=== PATIENT | female | born 1990 | race Two or more races ===

== ENCOUNTER 2020-06-15 12:43 | Inpatient (IN) | payer SELFPAY ==
[~2020-06-15] VITALS: Ht 157.5 cm; Wt 54.4 kg
--- NOTE | ~2020-06-15 | OP ---
PATIENT NAME: INGRIS KIMBALL MEDICAL RECORD: [id number] :89 LOCATION:D.M2 D.3 ADMISSION DATE:06/16/20 SURGEON: ANITA WALLER MD DATE OF OPERATION: 06/17/2020 PREOPERATIVE DIAGNOSIS: Colitis. POSTOPERATIVE DIAGNOSIS: No evidence of colitis or proctitis. No evidence of ileitis. Normal lower endoscopy. PROCEDURE PERFORMED: 1. Total colonoscopy to cecum. 2. Ileoscopy with cold endoscopic biopsy. 3. Random colon and rectal biopsies. 4. Stool cultures and stool studies. SURGEON: Anita Waller M.D. STEEL HEATER: None. BLOOD LOSS: Minimal. ANESTHESIA: IV sedation. COMPLICATIONS: None. The risks, possible complications, alternatives of the procedure were explained to the patient. She elects to proceed. ENDOSCOPIC COURSE: The patient was conveyed to the endoscopy suite electively on 06/17/2020. IV sedation was induced by the anesthesia staff. The patient was placed in the Sarmiento position. A digital rectal examination was performed. A colonoscope was inserted through the anus. It was easily advanced to the cecum. I intubated the ileum and traveled about a foot up the ileum. A cold endoscopic ileal biopsy was obtained. The ileum appeared normal. I then withdrew back into the colon. I slowly withdrew the endoscope. I irrigated and aspirated extensively. A combination of normal imaging and narrow band imaging were utilized. Stool was collected for stool cultures and stool studies. Random colon and rectal biopsies were obtained. The vascular pattern in the colon and rectum were normal. I noted no evidence of colitis or proctitis. A retroflexed view was obtained in the rectum. I then unretroflexed the scope and removed under direct vision. From my standpoint, the patient can be dismissed home on no antibiotics. I would like to see her in my office in 2 to 3 weeks to discuss the results of the stool studies. TRANSINT:[id number] Voice Confirmation ID: [id number] DOCUMENT ID: [id number] OPERATIVE REPORT [id number] AMINIDALMIS ISBELLINGRIS ROBERT MD CC: PHOEBE JANG [id number] DICTATION DATE: 06/17/20 1509 GUIDE DELEGATE: 06/17/202124 DIS IN 06/17/20 [facility] [address] [place] [address]
[~2020-06-15 12:43] MED LIST: ULTRAM50 MG PO
[2020-06-15 13:24] LABS: BASOPHILS 0.4 % (0-2); EOSINOPHILS 2.2 % (0-7); HEMATOCRIT 38.3 % (36.0-48.0); HEMOGLOBIN 12.9 g/dL (12-16); IMMATURE GRANULOCYTES 0.2 % (0-5); LYMPHOCYTE ABS# 1.91 10x3/uL (1.18-3.74); LYMPHOCYTES 34.3 % (15-50); MCH 30.9 pg (26.0-34.0); MCHC 33.7 g/dL (31.0-37.0); MCV 91.6 fL (80.0-100.0); NEUTROPHIL ABS# 3.23 10x3/uL (1.56-6.13); NEUTROPHILS 57.9 % (40-80); PLATELET COUNT 266 10x3/uL (130-400); RBC 4.18 10x6/uL (4.00-5.40); WBC 5.6 10x3/uL (4.8-10.8)
[2020-06-15 13:34] LABS: CALC OSMOLALITY 273 mosm/kg (275-300); CARBON DIOXIDE 28.8 mmol/L (21.0-32.0); CHLORIDE - SERUM 105 mmol/L (98-107); CREATININE - SERUM 0.7 mg/dL (0.6-1.3); GLUCOSE 88 mg/dL (74-106); POTASSIUM - SERUM 3.8 mmol/L (3.5-5.1); SODIUM 138 mmol/L (136-145); UREA NITROGEN 11 mg/dL (7-18); eGFR NON AFRICAN AMERICAN > 90 mL/min (90-120)
[2020-06-15 13:42] LABS: ALBUMIN 3.9 g/dL (3.4-5.0); ALKALINE PHOSPHATASE 76 U/L (30-120); ALT (SGPT) 27 U/L (10-68); AMYLASE - SERUM 65 U/L (25-115); BILIRUBIN - TOTAL 0.36 mg/dL (0.2-1.3); LIPASE 103 U/L (73-393); PROTEIN - SERUM 7.6 g/dL (6.4-8.2)
[2020-06-15 13:47] LABS: TROPONIN-I < 0.017 ng/mL (0.000-0.060)
[2020-06-15 14:15] LABS: BILIRUBIN NEGATIVE (NEGATIVE); KETONE NEGATIVE (NEGATIVE); NITRITE NEGATIVE (NEGATIVE); UROBILINOGEN NORMAL mg/dL (< 2)
--- NOTE | 2020-06-15 14:22 | NUR ---
DIGITAL CONTENT MANAGER PHONE USED TO COMMUNICATE WITH PT SHE IS SAMOAN SPEAKING
--- NOTE | 2020-06-15 14:55 | NUR ---
PT TO CT VIA WHEEL CHAIR
[2020-06-15 18:00] VITALS: BMI 22.0
--- NOTE | 2020-06-15 18:35 | NUR ---
RECEIVED PT TO ROOM 2112 VIA WHEELCHAIR, PT A/O X4, RESP EVEN AND NONLABORED ON RA. ORIENTED PT TO ROOM AND CALL LIGHT. DR. WALLER AT BEDSIDE TO ASSESS PT. WILL ASSESS PT AND START PLAN OF CARE.
[2020-06-15 22:06] VITALS: BP 115/80
[2020-06-16 04:00] VITALS: BP 122/81
[2020-06-16 06:43] LABS: BASOPHILS 0.2 % (0-2); EOSINOPHILS 1.7 % (0-7); HEMATOCRIT 39.1 % (36.0-48.0); IMMATURE GRANULOCYTES 0.2 % (0-5); LYMPHOCYTE ABS# 1.88 10x3/uL (1.18-3.74); LYMPHOCYTES 36.1 % (15-50); MCH 30.4 pg (26.0-34.0); MCHC 33.2 g/dL (31.0-37.0); MCV 91.6 fL (80.0-100.0); MEAN PLATELET VOLUME 10.2 fL (7.4-10.4); NEUTROPHIL ABS# 2.91 10x3/uL (1.56-6.13); NEUTROPHILS 55.8 % (40-80); PLATELET COUNT 263 10x3/uL (130-400); RBC 4.27 10x6/uL (4.00-5.40); RDW 11.9 % (11.5-14.5); WBC 5.2 10x3/uL (4.8-10.8)
[2020-06-16 06:52] LABS: ALBUMIN 3.6 g/dL (3.4-5.0); ALKALINE PHOSPHATASE 67 U/L (30-120); ALT (SGPT) 29 U/L (10-68); CALC OSMOLALITY 272 mosm/kg (275-300); CALCIUM 8.7 mg/dL (8.5-10.1); CARBON DIOXIDE 27.2 mmol/L (21.0-32.0); CHLORIDE - SERUM 105 mmol/L (98-107); CREATININE - SERUM 0.6 mg/dL (0.6-1.3); GLUCOSE 93 mg/dL (74-106); MAGNESIUM - SERUM 2.2 mg/dL (1.8-2.4); PHOSPHOROUS 4.3 mg/dL (2.5-4.9); POTASSIUM - SERUM 3.5 mmol/L (3.5-5.1); PROTEIN - SERUM 7.2 g/dL (6.4-8.2); SODIUM 137 mmol/L (136-145); UREA NITROGEN 10 mg/dL (7-18); eGFR NON AFRICAN AMERICAN > 90 mL/min (90-120)
--- NOTE | 2020-06-16 08:02 | NUR ---
PT LYING IN BED, RR EVEN NON LABORED. IV INFUSING WITHOUT DIFFICULTY. PT AWAKE AND ALERT. PT STATES "IM DOING FINE," BREAKFAST TRAY GIVEN PER DIETARY. AM MEDS GIVEN. NO FURTHER NEEDS VOICED. CLWR.
--- NOTE | 2020-06-16 08:40 | NUR ---
AMEND TO SHIFT ASSESSMENT. NO SIGNS OR SYMPTOMS OF ABUSE/NEGLECT NOTED.
[2020-06-16 08:44] VITALS: BP 99/55
--- NOTE | 2020-06-16 10:22 | NUR ---
PT SITTING UP IN BED TALKING ON CELL PHONE, RR EVEN NON LABORED. SCHEDULED MED GIVEN. NO FURTHER NEEDS VOICED. CLWR.
[2020-06-16 12:52] VITALS: Ht 157.5 cm; Wt 54.4 kg
--- NOTE | 2020-06-16 13:35 | NUR ---
PT SITTING UP IN BED , RR EVEN NON LABORED , WATCHING TV. NO NEEDS VOICED, CLWR.
[2020-06-16 13:36] VITALS: BP 112/70
--- NOTE | 2020-06-16 14:17 | NUR ---
PT BEING ASSISTED WITH EVICTION SPECIALIST TO SHOWER AT THIS TIME. PT DENIES ANY PAIN OR NEEDS. CLWR.
[2020-06-16 21:10] VITALS: BP 113/87
--- NOTE | 2020-06-16 22:41 | NUR ---
REPORT RECEIVED. PT A&O, UP IN BED WATCHING TV. NO S/S OF DISTRESS OBSERVED. RR EVEN & UNLABORED ON RA. BED LOCKED AND LOWERED, CL IN REACH. ASSESSMENT COMPLETED AT THIS TIME. WILL CONT POC.
[2020-06-17 04:38] VITALS: BP 101/66
[2020-06-17 05:53] LABS: MAGNESIUM - SERUM 2.2 mg/dL (1.8-2.4); PHOSPHOROUS 3.6 mg/dL (2.5-4.9)
--- NOTE | 2020-06-17 07:56 | NUR ---
PT LYING IN BED WITH HOB RAISED ON CELL PHONE. PRN PAIN MEDICATION D/T "POKING" PAIN IN ABD. RR EVEN NON LABORED ON ROOM AIR. NO FURTHER NEEDS VOICED. CLWR.
[2020-06-17 08:17] VITALS: BP 103/66
[2020-06-17 10:00] LABS: ALBUMIN 3.7 g/dL (3.4-5.0); ALKALINE PHOSPHATASE 68 U/L (30-120); ALT (SGPT) 30 U/L (10-68); BILIRUBIN - TOTAL 0.38 mg/dL (0.2-1.3); CALC OSMOLALITY 274 mosm/kg (275-300); CALCIUM 8.3 mg/dL (8.5-10.1); CARBON DIOXIDE 23.9 mmol/L (21.0-32.0); CHLORIDE - SERUM 107 mmol/L (98-107); CREATININE - SERUM 0.7 mg/dL (0.6-1.3); GLUCOSE 87 mg/dL (74-106); POTASSIUM - SERUM 3.4 mmol/L (3.5-5.1); PROTEIN - SERUM 7.4 g/dL (6.4-8.2); SODIUM 140 mmol/L (136-145); eGFR NON AFRICAN AMERICAN > 90 mL/min (90-120)
[2020-06-17 10:02] LABS: UREA NITROGEN 5 mg/dL (7-18)
[2020-06-17 10:14] LABS: BASOPHILS 0.4 % (0-2); EOSINOPHILS 2.3 % (0-7); HEMATOCRIT 39.6 % (36.0-48.0); HEMOGLOBIN 12.9 g/dL (12-16); IMMATURE GRANULOCYTES 0.2 % (0-5); LYMPHOCYTE ABS# 1.82 10x3/uL (1.18-3.74); LYMPHOCYTES 38.3 % (15-50); MCH 30.2 pg (26.0-34.0); MCHC 32.6 g/dL (31.0-37.0); MCV 92.7 fL (80.0-100.0); MEAN PLATELET VOLUME 10.3 fL (7.4-10.4); MONOCYTES 7.2 % (2-11); NEUTROPHIL ABS# 2.45 10x3/uL (1.56-6.13); NEUTROPHILS 51.6 % (40-80); PLATELET COUNT 276 10x3/uL (130-400); RBC 4.27 10x6/uL (4.00-5.40); RDW 12.1 % (11.5-14.5); WBC 4.8 10x3/uL (4.8-10.8)
[2020-06-17 12:42] VITALS: BP 106/62
--- NOTE | 2020-06-17 13:28 | NUR ---
PT TAKEN TO GI LAB AT THIS TIME.
[2020-06-17] MEDS ORDERED: MELATONIN 3 MG1 TAB PO (15:05)
[2020-06-17] MEDS ORDERED: FLORAJEN3 CAPS460 MG PO (15:05)
[2020-06-17] MEDS ORDERED: COLACE100 MG PO (15:05)
[2020-06-17] MEDS ORDERED: VISTARIL25 MG PO (15:05)
[2020-06-17] MEDS ORDERED: PROTONIX40 MG PO (15:05)
[2020-06-17] MEDS ORDERED: TESSALON PERLE100 MG PO (15:05)
[2020-06-17] MEDS ORDERED: NAPROXEN250 MG PO (15:06)
--- NOTE | 2020-06-17 15:21 | NUR ---
PT ARRIVED BACK FROM GI LAB AT THIS TIME. RR EVEN NON LABORED. VS OBTAINED AND STABLE. PT AWAKE AND ALERT, STATES "I NEED SLEEP" ENCOURAGED PT TO TAKE A NAP AND INSTRUCTED HER TO NOT EXIT THE BED UNATTENDED. PT STATES UNDERSTANDING. NO NEEDS VOICED. CLWR.
[2020-06-17 15:57] VITALS: BP 96/63
--- NOTE | 2020-06-17 15:58 | NUR ---
SPOKE WITH PT REGARDING HER D/C ORDER POST ANESTHESIA. PT STATES UNDERSTANDING AND HER FAMILY MEMBER WAS GOING TO COME GET HERE WHEN SHE IS ABLE TO LEAVE. PT AMBULATED TO RESTROOM WITH ASSISTANCE WITH STEADY GAIT. PT AWAKE AND ALERT, NO NEEDS VOICED. VS STABLE. CLWR.
--- NOTE | 2020-06-17 17:06 | NUR ---
D/C INSTRUCTIONS GIVEN AT THIS TIME. PT STATES UNDERSTANDING. WRITTEN INSTRUCTIONS GIVEN IN [place]. NO QUESTIONS VOICED. VS STABLE. PT GATHERING BELONGINGS. SPOUSE AT BEDSIDE.
--- NOTE | 2020-06-17 17:18 | NUR ---
IV TO RIGHT AC D/C, CATHETER INTACT, DRESSING APPLIED.
--- NOTE | 2020-06-17 17:35 | NUR ---
PT WHEELED TO PRIVATE VEHICLE WITH ALL BELONIGINGS AT THIS TIME. NO DISTRESS NOTED ON DEPARTURE.
== END 2020-06-17 17:35 | disposition home or self-care (01) | DRG 392 ==
LOC: D.ER 12:43 → OBSVTIME 16:20 → D.M2 16:20
PROVIDERS: Emergency Medicine; Family Medicine; Surgery; ADMIT Emergency Medicine; ATTEND Emergency Medicine
PROC: 0DBP8ZX Excision of Rectum, Via Natural or Artificial Opening Endoscopic, Diagnostic (ICD-10-PCS; 2020-06-17)
PROC: 0DBB8ZX Excision of Ileum, Via Natural or Artificial Opening Endoscopic, Diagnostic (ICD-10-PCS; principal; 2020-06-17 14:15)
DX: R10.9 Unspecified abdominal pain (principal); K92.2 Gastrointestinal hemorrhage, unspecified

== ENCOUNTER 2020-06-21 23:15 | Inpatient (IN) | payer SELFPAY ==
[~2020-06-21] VITALS: Ht 157.5 cm; Wt 54.5 kg
[~2020-06-21 23:15] MED LIST changes: +COLACE100 MG PO; +FLORAJEN3 CAPS460 MG PO; +MELATONIN 3 MG1 TAB PO; +NAPROXEN250 MG PO; +PROTONIX40 MG PO; +TESSALON PERLE100 MG PO; +VISTARIL25 MG PO
[2020-06-21 23:53] LABS: HEMATOCRIT 38.1 % (36.0-48.0); HEMOGLOBIN 13.2 g/dL (12-16); LYMPHOCYTES 38.8 % (15-50); MCH 30.9 pg (26.0-34.0); MCHC 34.6 g/dL (31.0-37.0); MCV 89.2 fL (80.0-100.0); MEAN PLATELET VOLUME 9.7 fL (7.4-10.4); NEUTROPHILS 55.5 % (40-80); PLATELET COUNT 270 10x3/uL (130-400); RBC 4.27 10x6/uL (4.00-5.40); WBC 5.3 10x3/uL (4.8-10.8)
[2020-06-21 23:56] LABS: CALC OSMOLALITY 278 mosm/kg (275-300); CHLORIDE - SERUM 103 mmol/L (98-107); CREATININE - SERUM 0.7 mg/dL (0.6-1.3); POTASSIUM - SERUM 3.8 mmol/L (3.5-5.1); SODIUM 139 mmol/L (136-145); UREA NITROGEN 9 mg/dL (7-18); eGFR NON AFRICAN AMERICAN > 90 mL/min (90-120)
[2020-06-21 23:58] LABS: GLUCOSE 140 mg/dL (74-106)
[2020-06-22] VITALS (9 sets, daily range): BP systolic 90–113; BP diastolic 56–90; Ht 157.5 cm; Wt 54.5 kg
[2020-06-22 00:04] LABS: ALKALINE PHOSPHATASE 76 U/L (30-120); ALT (SGPT) 47 U/L (10-68); AMYLASE - SERUM 63 U/L (25-115); BILIRUBIN - TOTAL 0.25 mg/dL (0.2-1.3); LIPASE 100 U/L (73-393); PROTEIN - SERUM 7.9 g/dL (6.4-8.2)
[2020-06-22 00:05] LABS: TROPONIN-I < 0.017 ng/mL (0.000-0.060)
[2020-06-22 00:28] LABS: HCG URINE NEGATIVE (NEGATIVE)
[2020-06-22 00:54] LABS: BILIRUBIN NEGATIVE (NEGATIVE); KETONE NEGATIVE (NEGATIVE); NITRITE NEGATIVE (NEGATIVE); UROBILINOGEN NORMAL mg/dL (< 2)
[2020-06-22 00:55] LABS: BACTERIA MODERATE HPF (NONE SEEN); WHITE CELLS - URINE 0-5 HPF (0-4)
--- NOTE | 2020-06-22 06:45 | NUR ---
PT RECEIVED FROM ED, AAOX4, VSS, AFEBRILE. ORIENTED TO ROOM/UNIT/TV, PT STATES UNDERSTANDING. IVF OF NS INFUSING AT 75 ML/HR TO RIGHT FA WITHOUT DIFFICULTY, SITE BENIGN TO INSPECTION. SR UP X2, BED IN LOW POSITION, BED BRAKES LOCKED.
--- NOTE | 2020-06-22 07:30 | NUR ---
PATIENT RESTING WITH EYES CLOSED IN SUPINE POSTION. RR UNLABORED AND REGULAR NO SS OF DISTRESS NOTED. BEEPING IV CORRECTED. BED IN LOW, SRUP X2, CALL LIGHT AND PHONE WITHIN REACH. PT NOT DISTURBED TO ALLOW FOR REST.
--- NOTE | 2020-06-22 07:47 | NUR ---
ADMISSION/SHIFT ASSESSMENT COMPLETED PER FLOWSHEET. VSS. C/O RLQ ABD 04/16, DENIES NEED FOR PAIN MEDS. POC DISCUSSED AND PT INSTRUCTED TO NOTIFY RN IF SHE NEEDS PAIN MEDS D/T ORDER BEING PRN, VERBALIZES UNDERSTANDING. QUESTIONS ANSWERED. DENIES NEEDS. BED IN LOW POSITION WITH SRUP X2. CALL LIGHT AND PHONE WITHIN REACH.
--- NOTE | 2020-06-22 09:24 | NUR ---
RESTING QUEITLY IN SEMI-FOWLERS POSITION ON RIGHT SIDE WITH EYES CLOSED, RESP REGULAR AND UNLABORED, NO S/S OF DISTRESS NOTED. BED IN LOW POSITION WITH SRUP X2. CALL LIGHT AND PHONE WITHIN REACH.
--- NOTE | 2020-06-22 12:30 | NUR ---
PT RESTING IN SUPINE POSITION, NO COMPLAINTS OR REQUESTS AND DENIES NEED FOR PAIN MEDS AT THIS TIME. ICE WATER PROVIDED, LUNCH TRAY REMOVED, BED IN LOW POSITION, CALL LIGHT AND PHONE WITHIN REACH.
--- NOTE | 2020-06-22 13:50 | NUR ---
PT RESTING IN ROOM, EYES CLOSED, SUPINE POSITION AND DUNG PAIN, 0 OUT OF 10 ON PAIN SCALE. BED IN LOW POSITION SRUP X2 CALL LIGHT AND PHONE WITHIN REACH.
--- NOTE | 2020-06-22 18:10 | NUR ---
TOOK PT VISITOR TO ROOM. PT SITTING IN BED ON CELL PHONE, DUNG PAIN AT THIS TIME, STATES 0/10 ON PAIN SCALE, CALL LIGHT AND PHONE WITHIN REACH, BED IN LOW POSITION, AND SRUP X2.
--- NOTE | 2020-06-22 19:30 | NUR ---
PT SITTING UP IN BED A,A,OX4. VSS. S1,S2 REGULAR RATE AND RHYTHM. RESPIRATIONS EVEN AND UNLABORED, BREATH SOUNDS CLEAR IN ALL LOBES. BOWEL SOUNDS NORMOACTIVE IN ALL 4 QUADRANTS. PT C/O SUPRAPUBIC PAIN AT 4/10, DENIES PAIN MEDICATION. PIV IN RIGHT FOREARM, NS INFUSING AT 75 MLS/HR. SEE FULL ASSESSMENT PER FLOWSHEET. CALL LIGHT WITHIN REACH.
--- NOTE | 2020-06-22 21:18 | NUR ---
PT PIV IN RIGHT FOREARM INFILTRATED. NEW IV STARTED IN RIGHT HAND SECOND ATTEMPT.
--- NOTE | 2020-06-22 22:40 | NUR ---
PT CALLS OUT ON LIGHT FOR SOMETHING TO EAT. SANDWICH TRAY, CRACKERS, JELLO AND ICE PROVIDED. PT DENIES OTHER NEEDS AT THIS TIME.
--- NOTE | 2020-06-23 00:43 | NUR ---
MEDICATION ADMINISTERED PER EMAR. PT DENIES NEEDS AT THIS TIME.
[2020-06-23 00:48] VITALS: BP 97/60
--- NOTE | 2020-06-23 03:00 | NUR ---
PT RESTING WITH EYES CLOSED, BREATHING NONLABORED.
--- NOTE | 2020-06-23 04:00 | NUR ---
NEW NS BAG HUNG INFUSING AT 75 ML/HR. PT RESTING WITH EYES CLOSED, BREATHING NONLABORED.
--- NOTE | 2020-06-23 05:34 | NUR ---
PT RESTING, DENIES NEEDS AT THIS TIME.
--- NOTE | 2020-06-23 06:50 | NUR ---
PT RESTING WITH EYES CLOSED, BREATHING NONLABORED.
[2020-06-23 07:15] VITALS: BP 91/57
--- NOTE | 2020-06-23 08:22 | NUR ---
PATIENT ASSESSMENT COMPLETED AT BEDSIDE. PATIENT DENIES PAIN AT THIS TIME. PATIENT BELARUSIAN SPEAKING. ABLE TO SPEAK AND UNDERSTANDING SOME [place] WITHOUT THE USE OF DESIGN DIRECTOR. MORNING ASSESSMENT ABLE TO BE COMPLETED WITHOUT IT. IF NEEDED DESIGN DIRECTOR PHONE ON THE UNIT. RIGHT HAND PIV INFUSING WITH LR AT 75 ML/HR. PLAN OF CARE DISCUSSED AT BEDSIDE. BOARD UPDATED. SIDE RAILS UPX2, BED IN LOW POSITION, CALL LIGHT WITHIN REACH.
--- NOTE | 2020-06-23 09:30 | NUR ---
PATIENT RESTING IN BED, EASILY AWAKEN UPON RN ENTERING ROOM. PATIENT DENIES NEEDS AT THIS TIME. SIDE RAILS UPX2, BED IN LOW POSITION, CALL LIGHT WITHIN REACH.
--- NOTE | 2020-06-23 12:10 | NUR ---
PATIENT UP IN BED EATING LUNCH. PATIENT DENIES NEEDS AT THIS TIME. PATIENT WITH NO COMPLAINTS OF PAIN. SIDE RAILS UP X2, BED IN LOW POSITION, CALL LIGHT WITHIN REACH.
--- NOTE | 2020-06-23 17:00 | NUR ---
PATIENT CALL RN TO ROOM. PATIENT REQUESTING TO SHOWER. RIGHT HAND PIV SALINED LOCK. COVERED WITH CLEAR BAG SO THAT PATIENT CAN SHOWER.
--- NOTE | 2020-06-23 17:41 | NUR ---
DR. SOMMERS NOTIFED FOR CLARIFICATION ON ORDERS. PATIENT TOLERATING REGULAR DIET WITHOUT DIFFICULTIES. PATIENT CAN BE HEPLOCKED PER DR SOMMERS. WILL DISCONTINUE CONTINOUS INFUSION OF FLUIDS AT THIS TIME.
[2020-06-23 19:11] VITALS: BP 107/71
--- NOTE | 2020-06-23 19:17 | NUR ---
PT SITTING UP A,A,OX4. VSS. S1,S2 REGULAR RR. BREATH SOUNDS CLEAR IN ALL LOBES. RR EVEN AND NONLABORED. BOWEL SOUNDS NORMOACTIVE X4 QUADRANTS. PT C/O PAIN 2/10 IN LOWER ABDOMEN, SUPRAPUBIC PAIN. DENIES NEED FOR MEDICATION. PIV SALINE LOCKED IN RT HAND, C/D/I. SEE FULL ASSESSMENT PER FLOWSHEET. SRUPX2, CALL LIGHT WITHIN REACH. PT DENIES NEEDS AT THIS TIME.
--- NOTE | 2020-06-23 19:50 | NUR ---
PIV FLUSHED AND NS RESTARTED, INFUSING AT 75 ML/HR PER EMAR. PT DENIES PAIN OR IRRITATION AT IV SITE. TRAY REMOVED FROM ROOM. PT DENIES NEEDS AT THIS TIME.
--- NOTE | 2020-06-23 21:34 | NUR ---
PT MEDICATION ADMINISTERED PER EMAR. BROTH AND SALTINE CRACKERS PROVIDED PER PT REQUEST. PT DENIES OTHER NEEDS AT THIS TIME.
--- NOTE | 2020-06-23 21:45 | NUR ---
PT CALLS OUT LOGISTICS RESEARCH ENGINEER LIGHT COMPLAINING OF PAIN AT IV SITE. INFILTRATION NOTED. IV JOSE'Laura GALDAMEZ NOTIFIED OF INFILTRATION. ORDERS RECEIVED TO RESTART IV AND INFUSE ANTIBIOTICS PER EMAR. TWO ATTEMPTS TO START PIV.
--- NOTE | 2020-06-23 22:38 | NUR ---
IV RESTARTED AT THIS TIME, 20 GAUGE TO RIGHT FOREARM, FLUSHED WITHOUT DIFFICULTY AND IV FLUIDS AND ANTIBIOTICS RESTARTED AT THIS TIME. PT. TOLERATED WELL.
--- NOTE | 2020-06-24 00:35 | NUR ---
MEDICATION ADMINISTERED PER EMAR. PT DENIES NEEDS AT THIS TIME.
--- NOTE | 2020-06-24 01:54 | NUR ---
PT RESTING WITH EYES CLOSED. BREATHING NONLABORED.
--- NOTE | 2020-06-24 03:24 | NUR ---
PT RESTING WITH EYES CLSOED, BREATHING NONLABORED.
[2020-06-24 07:44] VITALS: BP 102/61
--- NOTE | 2020-06-24 07:44 | NUR ---
THIS RN TO ROOM FOR SHIFT ASSESSMENT. PT SITTING UP IN BED, AAOx3, TALKING ON PHONED. RATES PAIN 3/10, DENIES NEED FOR PAIN MED OR INTERVENTION. SHIFT ASSESSMENT COMPLETED, VSS, SEE FLOWSHEET FOR DOC. NS INFUSING ORDERED TO RIGHT FOREARM PIV. PT DENIES NEEDS. POC DISCUSSED, PT STATES SHE HOPES TO GO HOME TODAY. SRUx2, CL IN REACH.
--- NOTE | 2020-06-24 08:07 | NUR ---
DR SOMMERS PHONED TO VERIFY IF SHE WANTS ANTIBIOTICS CHANGED FROM IV TO PO PER PLAN NOTED IN PROGRESS NOTE. NO ANSWER, WILL CALL AGAIN.
--- NOTE | 2020-06-24 09:40 | NUR ---
THIS RN TO ROOM FOR NEXT ANTIBIOTIC DUE. PT C/O PAIN AT IV SITE. IV NOTED TO BE INFILTRATED. IV FLUIDS STOPPED. WILL CHECK WITH MD BEFORE RESITING IV IF SHE WOULD LIKE PO ANTIBIOTICS. PT DENIES NEEDS. SRUx2, CL IN REACH.
--- NOTE | 2020-06-24 10:05 | NUR ---
DR SOMMERS ON UNIT, REPORT GIVEN THAT IV HAS INFILTRATED. STATES WILL PLACE ORDERS FOR PO ANTIBIOTICS.
--- NOTE | 2020-06-24 10:16 | NUR ---
PHARMACY PHONED AND NOTIFIED OF NEED FOR PO DOXYCYCLINE. STATES WILL HAVE IT OVER SOON POSSIBLE.
--- NOTE | 2020-06-24 10:38 | NUR ---
PT ADMIN SCHEDULED PO DOXYCYCLINE AND PROBIOTIC ORDERED, SEE EMAR FOR DOC. PT RIGHT FOREARM PIV D/C'D PER ORDER DUE TO INFILTRATION. PT DENIES PAIN OR NEEDS. STATES SHE IS READY TO GO HOME. PT DRESSING IN OWN CLOTHES, ANTICIPATING MD ROUNDING TO SEE IF SHE WILL BE DISCHARGED HOME.
--- NOTE | 2020-06-24 11:30 | NUR ---
DR SOMMERS TO ROOM FOR ROUNDING, GIVES VERBAL ORDER FOR DISCHARGE TO HOME. PROVIDES WRITTEN PRESCRIPTION FOR ANTIBIOTICS FOR PT POST D/C TO HOME.
[2020-06-24] MEDS ORDERED: FLAGYL500 MG PO (11:46)
[2020-06-24] MEDS ORDERED: VIBRAMYCIN 100100 MG PO (11:46)
--- NOTE | 2020-06-24 12:00 | NUR ---
PT GIVEN D/C INSTRUCTIONS WELL WRITTEN PRESCRIPTION FOR ANTIBIOTICS PROVIDED BY DR SOMMERS. PT VERBALIZES UNDERSTANDING, QUESITONS ANSWERED. PT REFUSES NEED FOR W/C. PT OFF UNIT AMBULATORY TO AWAITING PRIVATE VEHICLE, FAMILY MEMBER TO DRIVE HER HOME.
[2020-06-24 14:10] LABS: CHLAMYDIA TRACHOMATIS, NAA Negative (Negative)
== END 2020-06-24 12:00 | disposition home or self-care (01) | DRG 759 ==
LOC: D.ER 23:15 → D.LD 06-22 05:12
PROVIDERS: Emergency Medicine; ADMIT Student in an Organized Health Care Education/Training Program; ATTEND Student in an Organized Health Care Education/Training Program
DX: N70.93 Salpingitis and oophoritis, unspecified (principal)

== ENCOUNTER 2020-06-25 22:21 | Emergency (ER) | payer SELFPAY ==
[~2020-06-25] VITALS: Ht 157.5 cm; Wt 54.4 kg
[~2020-06-25 22:21] MED LIST changes: +FLAGYL500 MG PO; +VIBRAMYCIN 100100 MG PO
[2020-06-25 22:27] VITALS: Ht 157.5 cm; Wt 54.4 kg
[2020-06-25 22:56] LABS: BASOPHILS 0.2 % (0-2); EOSINOPHILS 2.3 % (0-7); HEMATOCRIT 39.6 % (36.0-48.0); HEMOGLOBIN 13.7 g/dL (12-16); IMMATURE GRANULOCYTES 0.2 % (0-5); LYMPHOCYTE ABS# 1.85 10x3/uL (1.18-3.74); LYMPHOCYTES 35.8 % (15-50); MCH 30.9 pg (26.0-34.0); MCHC 34.6 g/dL (31.0-37.0); MCV 89.2 fL (80.0-100.0); MEAN PLATELET VOLUME 10.1 fL (7.4-10.4); MONOCYTES 5.8 % (2-11); NEUTROPHIL ABS# 2.88 10x3/uL (1.56-6.13); NEUTROPHILS 55.7 % (40-80); PLATELET COUNT 310 10x3/uL (130-400); RBC 4.44 10x6/uL (4.00-5.40); WBC 5.2 10x3/uL (4.8-10.8)
[2020-06-25 23:07] LABS: HCG URINE NEGATIVE (NEGATIVE)
[2020-06-25 23:08] LABS: BILIRUBIN NEGATIVE (NEGATIVE); KETONE NEGATIVE (NEGATIVE); NITRITE NEGATIVE (NEGATIVE); UROBILINOGEN NORMAL mg/dL (< 2)
[2020-06-25 23:09] LABS: CALC OSMOLALITY 279 mosm/kg (275-300); CALCIUM 8.9 mg/dL (8.5-10.1); CARBON DIOXIDE 27.6 mmol/L (21.0-32.0); CHLORIDE - SERUM 101 mmol/L (98-107); CREATININE - SERUM 0.7 mg/dL (0.6-1.3); POTASSIUM - SERUM 3.6 mmol/L (3.5-5.1); SODIUM 138 mmol/L (136-145); SQUAMOUS EPITHELIAL 0-5 HPF (0-4); UREA NITROGEN 7 mg/dL (7-18); WHITE CELLS - URINE 0-5 HPF (0-4); eGFR NON AFRICAN AMERICAN > 90 mL/min (90-120)
[2020-06-25 23:12] LABS: BACTERIA FEW HPF (NONE SEEN)
[2020-06-25 23:20] LABS: ALBUMIN 4.2 g/dL (3.4-5.0); ALKALINE PHOSPHATASE 94 U/L (30-120); ALT (SGPT) 38 U/L (10-68); BILIRUBIN - TOTAL 0.25 mg/dL (0.2-1.3); GLUCOSE 205 mg/dL (74-106); HCG - QUANTITATIVE (MATERNAL) 0 mIU/mL; LIPASE 80 U/L (73-393); PROTEIN - SERUM 8.1 g/dL (6.4-8.2)
[2020-06-26 01:10] VITALS: BP 117/79
== END 2020-06-26 01:10 | disposition home or self-care (01) ==
LOC: D.ER 22:21
PROVIDERS: Family Medicine
DX: R10.2 Pelvic and perineal pain (principal); R19.7 Diarrhea, unspecified